=== PATIENT | female | born 1960 | race Caucasian/White ===

== ENCOUNTER 2018-06-04 09:11 | Emergency (ER) | payer BC ==
[2018-06-04] MEDS ORDERED: Lidocaine 1% MPF* 2 ML VIAL INJ ONE (11:34)
--- NOTE | 2018-06-04 11:56 | UC ---
Skin Complaint HPI - HPI Summary HPI Summary: Patient states that she's had some pustules in both of her armpits for about a week should see her primary care and the left side resolved with antibiotic however the right side continues to have pimple-type area and drains when she squeezes it. Patient also notes that her left breast has a spot as well for the past 5 days. She denies any known history of MRSA and has no associated fever. She states she's been taking cefuroxime which is helped a little but the spots have not gone away. - History of Current Complaint Chief Complaint: UCSkin Time Seen by Provider: 06/04/18 11:14 Stated Complaint: LUMPS UNDERARMS/CHEST AREA Hx Obtained From: Patient Onset/Duration: Gradual Onset Timing: Constant Pain Intensity: 0 Aggravating Factor(s): Nothing Associated Signs & Symptoms: Positive: Rash. Negative: Nausea, Vomiting, Fever , Chills - Allergy/Home Medications Allergies/Adverse Reactions: Allergies Allergy/AdvReac Type Severity Reaction Status Date / Time No Known Allergies Allergy Verified 06/04/18 11:43 Review of Systems Constitutional: Negative Skin: Rash - AXILLA, l BREAST Eyes: Negative ENT: Negative Respiratory: Negative Cardiovascular: Negative Gastrointestinal: Negative Genitourinary: Negative Motor: Negative Neurovascular: Negative Musculoskeletal: Negative Neurological: Negative Psychological: Negative Is Patient Immunocompromised?: No All Other Systems Reviewed And Are Negative: Yes PMH/Surg Hx/FS Hx/Imm Hx Previously Healthy: Yes - Surgical History Surgical History: Yes Surgery Procedure, Year, and Place: 3 C-sections - Family History Known Family History: Positive: None - Social History Lives: With Family Alcohol Use: Occasionally Substance Use Type: None Smoking Status (MU): Former Smoker Household Exposure Type: Cigarettes - Immunization History Vaccination Up to Date: Yes Physical Exam Triage Information Reviewed: Yes Appearance: Well-Appearing Vital Signs: Initial Vital Signs Temp 97.8 F 06/04/18 11:39 Pulse 75 06/04/18 11:39 Resp 16 06/04/18 11:39 BP 155/98 06/04/18 11:39 Pulse Ox 96 06/04/18 11:39 Vital Signs Reviewed: Yes Eyes: Positive: Conjunctiva Clear ENT: Positive: Normal ENT inspection Neck: Positive: Supple, Nontender, No Lymphadenopathy Respiratory: Positive: Lungs clear, Normal breath sounds Cardiovascular: Positive: RRR, No Murmur Abdomen Description: Positive: Nontender, No Organomegaly, Soft Bowel Sounds: Positive: Present Musculoskeletal: Positive: ROM Intact Neurological: Positive: Alert Psychological: Positive: Age Appropriate Behavior Skin Exam: Normal, Other - Left breast has an area of erythema with some central fluctuance and pointing approximately 2 cm to the upper breast. No streaking and no axillary adenopathy. Left axilla has an area of erythema but no pointing, no tenderness and no induration. Right axilla has 2 cm area of induration with a small central pustule but no streaking. Course/Dx - Course Course Of Treatment: Since 2-year-old grandson has an abscess in patient currently has 2 abscesses that are not resolving despite cefuroxime raising concern for MRSA thus I will discontinue her current antibiotic and start her on Bactrim. Procedure: Left breast prepped with Betadine. Local with 1% lidocaine using a 30-gauge needle. Very tiny superficial incision made with a # 11 blade and a small to moderate amount of pus spontaneously drained. Culture obtained. Gentle pressure to site until no additional pus drained. Area covered with bacitracin and a Band-Aid. Patient tolerated well. There is a secondary cellulitis involving approximately two thirds of the breast. Procedure: Left axilla prepped with Betadine. Local with 1% lidocaine using a 30-gauge needle. Superficial stab incision made with the tip of an #11 blade. Small amount of pus spontaneously drained and culture obtained. Gentle pressure to the site until no additional pus expressed. Site covered with bacitracin and a piece of sterile gauze held in place with paper tape. Only scant bleeding from each site. Sterile technique and separate set of instruments used for each site. Patient tolerated well. - Diagnoses Provider Diagnoses: Abscess left breast with secondary cellulitis. Abscess right axilla. Discharge - Sign-Out/Discharge Documenting (check all that apply): Patient Departure All imaging exams completed and their final reports reviewed: No Studies - Discharge Plan Condition: Stable Disposition: HOME Prescriptions: Sulfamethox/Trimethoprim DS* [Bactrim DS 800/160 TAB*] 1 tab PO BID 10 Days #20 tab Patient Education Materials: Cellulitis (DC), Abscess (ED) Referrals: No Primary Care Phys,NOPCP [Primary Care Provider] - Additional Instructions: Follow-up with your primary care upon returning home in 1-2 days for recheck. Go to the nearest emergency room immediately for any fever or worsening. Stop her current antibiotic and start the Bactrim as directed. Call in 3-4 days for results of your wound culture. - Billing Disposition and Condition Condition: STABLE Disposition: Home Addendum entered and electronically signed by Jessica Cadet PA 06/04/18 12:57 : UC Addendum Addendum: BP still elevated during stay. pt attributes to this vist but will have it rechecked by her pcp in 1-2 days.
[2018-06-04 12:57] VITALS: BP 159/93
--- NOTE | 2018-06-06 20:38 | UC ---
- Progress Note Progress Note: -pt called earlier this evening for test results. cx is sisnetive to the bactrim that she is on. I gave verbal permission for staffing to notify of this. cont abx and f/u w/ pcp. Discharge - Sign-Out/Discharge Documenting (check all that apply): Post-Discharge Follow Up All imaging exams completed and their final reports reviewed: No Studies - Discharge Plan Condition: Stable Disposition: HOME Prescriptions: Sulfamethox/Trimethoprim DS* [Bactrim DS 800/160 TAB*] 1 tab PO BID 10 Days #20 tab Patient Education Materials: Cellulitis (DC), Abscess (ED) Referrals: No Primary Care Phys,NOPCP [Primary Care Provider] - Additional Instructions: Follow-up with your primary care upon returning home in 1-2 days for recheck. Go to the nearest emergency room immediately for any fever or worsening. Stop her current antibiotic and start the Bactrim as directed. Call in 3-4 days for results of your wound culture. - Billing Disposition and Condition Condition: STABLE Disposition: Home
== END 2018-06-04 13:11 | disposition home or self-care (01) ==
LOC: UCCORT 09:11
DX: N61.1 Abscess of the breast and nipple (principal); L02.411 Cutaneous abscess of right axilla; B95.61 Methicillin susceptible Staphylococcus aureus infection as the cause of diseases classified elsewhere; R03.0 Elevated blood-pressure reading, without diagnosis of hypertension; Z86.14 Personal history of Methicillin resistant Staphylococcus aureus infection; Z87.891 Personal history of nicotine dependence
CPT/HCPCS: 10061; 87070; 87077; 87186; 87205; 87640; 87641; 99202; G0463